=== PATIENT | female | born 1985 | race African-American/Black ===

== ENCOUNTER 2024-05-13 09:33 | Inpatient (IN) ==
[2024-05-13 11:00] LABS: Urine Benzodiazepine Screen None Detected (None Detect); Urine Cannabinoids Screen None Detected (None Detect); Urine Opiates Screen None Detected (None Detect)
[2024-05-13] MEDS ORDERED: Prochlorperazine 5 mg/ml 2 ml VIAL (10 mg) IV PRN (11:54)
[2024-05-13] MEDS ORDERED: Lidocaine 1% VIAL 10 MG/ML 30 ML VIAL INJ PRN (11:54)
[2024-05-13] MEDS ORDERED: Nalbuphine 10 MG/ML 1 ML VIAL IV PRN (11:54)
[2024-05-13] MEDS: Lactated Ringers 1000 ml BAG 1,000 ML IV ONE (12:40)
[2024-05-13 12:42] LABS: ABS Lymphocytes 0.9 10^3/uL (1.0-4.8); ABS Monocytes 0.6 10^3/uL (0.0-0.9); ABS Neutrophils 2.6 10^3/uL (1.5-7.6); ABS Nucleated RBC 0.01 10^3/ul; Eosinophil % 1.1 %; Hematocrit 30.2 % (35-45); Hemoglobin 10.2 g/dL (11.5-14.3); Lymphocyte % 21.7 %; Mean Corpuscular Hemoglobin 30.4 pg (27-33); Mean Corpuscular Hgb Conc 33.9 g/dL (31-36); Mean Corpuscular Volume 89.6 fL (80-97); Mean Platelet Volume 9.2 fL (7.5-11.2); Nucleated Red Blood Cells % 0.3 %/100WBC (0.0-0.8); Platelet Count 240 10^3/uL (150-450); Red Blood Count 3.37 10^6/uL (3.63-4.92); Red Cell Distribution Width 14.6 % (12-17); White Blood Count 4.1 10^3/uL (3.8-11.8)
[2024-05-13] MEDS: Oxytocin in LR 20,000 MILLI.UNIT/1,000 ML BAG IV SCH (13:23)
[2024-05-13] MEDS: Penicillin G Potassium IV 5,000,000 UNITS in NS 0.9% 100 ml BAG 100 ML IVPB ONE (14:17)
[2024-05-13] MEDS: Penicillin G Potassium IV 3,000,000 UNITS in NS 0.9% 100 ml BAG 100 ML IVPB SCH (18:15)
[2024-05-13] MEDS: Buffered Lidocaine 1% SYRIN 1 ml INTRADERM ONE (19:51)
[2024-05-13] MEDS: Lactated Ringers 1000 ml BAG 1,000 ML IV SCH (22:07)
[2024-05-14] MEDS: Penicillin G Potassium IV 3,000,000 UNITS in NS 0.9% 100 ml BAG 100 ML IVPB SCH (03:51)
[2024-05-14] MEDS ORDERED: Lidocaine/Epinephrin 1.5%/200 5 ML AMP INJ ONE (16:55)
[2024-05-14] MEDS ORDERED: Phenylephrine 40 mcg/mL 10mL (400mcg) SYRINGE ONE (16:56)
[2024-05-14] MEDS: OBEPIDURAL (200 ML) 200 ML EPIDURAL ONE (17:31)
[2024-05-14] MEDS ORDERED: Lactated Ringers 1000 ml BAG 1,000 ML IV ONE (17:43)
[2024-05-14] MEDS ORDERED: Phenylephrine 40 mcg/mL 10mL (400mcg) SYRINGE IV PUSH PRN ×2 (17:43)
[2024-05-14] MEDS ORDERED: Sodium Citrate/Citric Acid LIQ 15 ML UDC PO PRN (17:43)
[2024-05-14] MEDS ORDERED: OBEPIDURAL (200 ML) 200 ML EPIDURAL SCH (18:00)
[2024-05-14] MEDS ORDERED: Lactated Ringers 1000 ml BAG 1,000 ML IV SCH (18:00)
[2024-05-14 18:15] LABS: Urine Appearance Clear; Urine Bilirubin Negative (Negative); Urine Blood Negative (Negative); Urine Color Light-Yellow; Urine Glucose Negative (Negative); Urine Ketones 2+ (Negative); Urine Nitrite Negative (Negative); Urine Protein Negative (Negative); Urine Specific Gravity 1.013 (1.002-1.030); Urine Urobilinogen Negative (Negative); Urine pH 7.5 (5.0-8.0)
[2024-05-14] MEDS: Calcium Carb (TUMS) 500 mg CHEW TAB PO SCH (19:46)
[2024-05-15] MEDS ORDERED: Glycerin ADULT 2.4 gm SUPP PR PRN (00:20)
[2024-05-15] MEDS ORDERED: Witch Hazel PAD JAR TOPICAL PRN (00:20)
[2024-05-15] MEDS ORDERED: Dibucaine 1% OINT 28.35 GM TUBE PR PRN (00:20)
[2024-05-15] MEDS ORDERED: Lactated Ringers 1000 ml BAG 1,000 ML IV SCH (01:00)
[2024-05-15] MEDS: Oxytocin in LR 20,000 MILLI.UNIT/1,000 ML BAG IV SCH (01:24)
[2024-05-16 08:24] VITALS: BP 110/69
[2024-05-16 10:25] LABS: ABS Eosinophils 0.1 10^3/uL (0.0-0.5); ABS Monocytes 0.5 10^3/uL (0.0-0.9); ABS Neutrophils 3.7 10^3/uL (1.5-7.6); ABS Nucleated RBC 0.01 10^3/ul; Eosinophil % 2.1 %; Lymphocyte % 19.1 %; Mean Corpuscular Hemoglobin 30.8 pg (27-33); Mean Corpuscular Hgb Conc 34.8 g/dL (31-36); Mean Corpuscular Volume 88.7 fL (80-97); Mean Platelet Volume 7.7 fL (7.5-11.2); Nucleated Red Blood Cells % 0.2 %/100WBC (0.0-0.8); Platelet Count 168 10^3/uL (150-450); Red Blood Count 2.93 10^6/uL (3.63-4.92); Red Cell Distribution Width 14.6 % (12-17); White Blood Count 5.4 10^3/uL (3.8-11.8)
[2024-05-16 13:16] LABS: Syphilis IgG Screen Nonreactive
== END 2024-05-16 19:00 | disposition home or self-care (01) | DRG 560 ==
LOC: MCHOBOUT 09:33 → MCHOB 10:24
PROVIDERS: ADMIT Obstetrics & Gynecology; ATTEND Obstetrics & Gynecology